=== PATIENT | female | born 1990 | race African-American/Black ===

== ENCOUNTER 2020-02-18 00:18 | Emergency (ER) | payer OTHER ==
[2020-02-18] MEDS ORDERED: ONDANSETRON 4 MG/2 ML VIAL IVP STA (00:30)
[2020-02-18] MEDS ORDERED: SODIUM CHLORIDE 0.9% 1,000 ML IV STA (00:30)
[2020-02-18 01:21] LABS: BASOPHILS % (AUTO) 0.3 %; EOSINOPHILS % (AUTO) 0.2 %; HGB - HEMOGLOBIN 12.5 g/dL (12.0-16.0); LYMPHOCYTES # (AUTO) 1.7 10^3/uL (1.5-3.5); LYMPHOCYTES % (AUTO) 18.7 %; MEAN CORPUSCULAR HEMOGLOBIN 29.2 pg (27.0-31.0); MEAN CORPUSCULAR HGB CONC 33.9 g/dL (32.0-36.0); MEAN CORPUSCULAR VOLUME 86.2 fL (81.0-99.0); MEAN PLATELET VOLUME 10.1 fL (7.9-10.8); MONOCYTES # (AUTO) 0.7 10^3/uL (0.0-1.0); NEUTROPHILS # (AUTO) 6.7 10^3/uL (1.5-6.6); NEUTROPHILS % (AUTO) 72.4 %; PLT - PLATELET COUNT 361 10^3/uL (130-450); RED BLOOD COUNT 4.28 10^6/uL (4.20-5.40); WHITE BLOOD COUNT 9.2 x10^3/uL (4.8-10.8)
--- NOTE | 2020-02-18 01:22 | ED Physician Documentation ---
History of Present Illness - Stated complaint Stated Complaint: N/V - Chief complaint Chief Complaint: Abd Pain - History obtained from History obtained from: Patient - Additonal information Additional information: Patient comes emergency department chief complaint of ongoing related nausea and vomiting, but worse over the last couple of days. Patient states she is about 8 weeks and that she has had nausea all throughout her , but that it seems to be getting worse. She states she is only able to hold fluids down if she drinks tiny bits at a time all throughout the day, otherwise she Vomits. She has not been able to hold any food down for the last 2 days. She states nothing else is really changed. She does not have any abdominal pain, dysuria, or fevers. No back pain. No vaginal bleeding. Patient states she is otherwise healthy and this is her first . She has not yet been assigned an OB through the [facility], and has no nausea medication at home. No other complaints at this time. Review of Systems Ten Systems: 10 systems reviewed and negative Constitutional: reports: Reviewed and negative Eyes: reports: Reviewed and negative Ears: reports: Reviewed and negative Nose: reports: Reviewed and negative Throat: reports: Reviewed and negative Cardiac: reports: Reviewed and negative Respiratory: reports: Reviewed and negative GI: reports: Nausea, Vomiting : reports: Now EGA (8 wks). denies: Dysuria, Frequency, Vaginal bleeding Skin: reports: Reviewed and negative Musculoskeletal: reports: Reviewed and negative Neurologic: reports: Reviewed and negative Psychiatric: reports: Reviewed and negative Endocrine: reports: Reviewed and negative Immunocompromised: reports: Reviewed and negative PD PAST MEDICAL HISTORY - Past Medical History Past Medical History: Yes Psych: Anxiety - Past Surgical History Past Surgical History: No - Present Medications Home Medications: Ambulatory Orders Medication Instructions Recorded Confirmed Ondansetron Odt [Zofran] 4 mg TL Q6H PRN #25 tablet 02/18/20 - Allergies Allergies/Adverse Reactions: Allergies Allergy/AdvReac Type Severity Reaction Status Date / Time No Known Drug Allergies Allergy Verified 02/18/20 00:21 - Social History Does the pt smoke?: No Smoking Status: Never smoker Does the pt drink ETOH?: No Does the pt have substance abuse?: No - Immunizations Immunizations are current?: Yes - POLST Patient has POLST: No PD ED PE NORMAL - Vitals Vital signs reviewed: Yes - General General: Alert and oriented X 3, No acute distress, Well developed/nourished - HEENT HEENT: Atraumatic, PERRL, EOMI, Moist mucous membranes - Neck Neck: Supple, no meningeal sign - Cardiac Cardiac: RRR, No murmur, Strong equal pulses - Respiratory Respiratory: No respiratory distress, Clear bilaterally - Abdomen Abdomen: Soft, Non tender, Non distended - Back Back: No CVA TTP - Derm Derm: Normal color, Warm and dry, No rash - Extremities Extremities: No deformity, No edema, No calf tenderness / cord - Neuro Neuro: Alert and oriented X 3, Other (Grossly normal) - Psych Psych: Normal mood, Normal affect Results - Vitals Vitals: Vital Signs - 24 hr 02/18/20 02/18/20 02/18/20 00:21 00:23 01:54 Temperature 36.5 C 36.5 C 36.5 C Heart Rate 69 69 65 Respiratory 16 16 16 Rate Blood Pressure 160/100 H 160/100 H 114/74 O2 Saturation 100 100 100 Oxygen O2 Source Room air - Labs Labs: Laboratory Tests 02/18/20 02/18/20 02/18/20 00:34 00:34 00:34 WBC 9.2 RBC 4.28 Hgb 12.5 Hct 36.9 L MCV 86.2 MCH 29.2 MCHC 33.9 RDW 13.0 Plt Count 361 MPV 10.1 Neut # (Auto) 6.7 H Lymph # (Auto) 1.7 [place] # (Auto) 0.7 Eos # (Auto) 0.0 Baso # (Auto) 0.0 Absolute Nucleated RBC 0.00 Nucleated RBC % 0.0 Sodium 131 L Potassium 3.6 Chloride 99 L Carbon Dioxide 20 L Anion Gap 12.0 BUN 11 Creatinine 0.6 Estimated GFR (MDRD) 117 Glucose 91 Calcium 9.3 Total Bilirubin 0.7 AST 17 ALT 12 Alkaline Phosphatase 67 Total Protein 8.5 H Albumin 4.5 Globulin 4.0 Albumin/Globulin Ratio 1.1 Lipase 23 HCG, Quant 157443.00 PD MEDICAL DECISION MAKING - ED course Complexity details: reviewed results, re-evaluated patient, considered differential, d/w patient ED course: The patient was treated with IV fluids and Zofran in the emergency department. Laboratory studies were performed and unremarkable, Except for a very elevated beta hCG, consistent with the patient's . I discussed with the patient that she actually should continue her plan of drinking small amounts of fluid at a time until her nausea resolves enough to allow her to drink more. I have given her prescription for Zofran since she is feeling much better after being treated with the same in the emergency department. We have discussed home management of the symptoms, as well as the usual indications for return. Departure - Departure Disposition: 01 Home, Self Care Clinical Impression: Hyperemesis gravidarum Condition: Stable Instructions: ED Preg Morning Sickness Prescriptions: Ondansetron Odt [Zofran] 4 mg TL Q6H PRN #25 tablet PRN Reason: Nausea / Vomiting
[2020-02-18 01:30] LABS: ALBUMIN 4.5 g/dL (3.2-5.5); ALBUMIN/GLOBULIN RATIO 1.1 (1.0-2.2); BILIRUBIN,TOTAL 0.7 mg/dL (0.2-1.0); CALCIUM 9.3 mg/dL (8.5-10.3); CREATININE 0.6 mg/dL (0.4-1.0); TOTAL PROTEIN 8.5 g/dL (6.7-8.2)
[2020-02-18 01:54] VITALS: BP 114/74
== END 2020-02-18 02:36 | disposition home or self-care (01) ==
LOC: ED 00:18
DX: O21.0 Mild hyperemesis gravidarum (principal); Z3A.08 8 weeks gestation of pregnancy
CPT/HCPCS: 36415; 80053; 81001; 81003; 83690; 84702; 85025; 87086; 96361; 96374; 99284

== ENCOUNTER → 2020-08-31 | Outpatient (CLI) | payer OTHER | END | disposition short-term general hospital (02) | LOC: EMS 11:16 | DX: O99.893 Other specified diseases and conditions complicating puerperium (principal); R20.2 Paresthesia of skin; R42 Dizziness and giddiness | CPT/HCPCS: A0425; A0429 ==

== ENCOUNTER 2020-09-23 08:49 | Outpatient (CLI) | payer OTHER | END 2020-09-23 23:59 | disposition EMS.NT | LOC: EMS 08:49 | DX: I10 Essential (primary) hypertension (principal) ==